=== PATIENT | female | born 1980 | race Two or more races ===

== ENCOUNTER 2019-08-13 09:26 | Emergency (ER) | payer SELFPAY ==
[~2019-08-13] VITALS: Ht 165.1 cm; Wt 65.8 kg
[2019-08-13 10:14] VITALS: BP 112/68
--- NOTE | 2019-08-13 10:39 | PHYS DOC ---
Past Medical History Past Medical History: No Pertinent History Past Surgical History: No Surgical History Alcohol Use: None Drug Use: None Adult General Chief Complaint Chief Complaint: FLU SYMPTOM HPI HPI Patient is a 38 year old female patient with no significant medical history who presents to the ED today complaining of body aches chills and a cough that began yesterday. Patient denies any fever. She reports she was seen by her PCP and was started on albuterol inhaler for asthma. She states she did not fill the prescription. She took ibuprofen yesterday as well as hydrocodone from her mother and woke up this morning vomiting. Denies any abdominal pain. Review of Systems Review of Systems Constitutional: Reports body aches, chills, denies fever Eyes: Denies change in visual acuity, redness, or eye pain [] HENT: Denies nasal congestion or sore throat [] Respiratory: Reports cough, denies shortness of breath [] Cardiovascular: No additional information not addressed in HPI [] GI: Reports vomiting after taking hydrocodone. Denies abdominal pain, bloody stools or diarrhea [] : Denies dysuria or hematuria [] Musculoskeletal: Denies back pain or joint pain [] Integument: Denies rash or skin lesions [] Neurologic: Denies headache, focal weakness or sensory changes [] All other systems were reviewed and found to be within normal limits, except as documented in this note. Allergies Allergies Allergies Coded Allergies Type Severity Reaction Last Updated Verified No Known Drug Allergies 05/06/15 No Physical Exam Physical Exam Constitutional: Well developed, well nourished, no acute distress, non-toxic appearance. [] HENT: Normocephalic, atraumatic, bilateral external ears normal, oropharynx moist, no oral exudates, nose normal. [] Eyes: PERRLA, EOMI, conjunctiva normal, no discharge. [] Neck: Normal range of motion, no tenderness, supple, no stridor. [] Cardiovascular:Heart rate regular rhythm, no murmur [] Lungs & Thorax: Bilateral breath sounds clear to auscultation [] Abdomen: Bowel sounds normal, soft, no tenderness, no masses, no pulsatile masses. [] Skin: Warm, dry, no erythema, no rash. [] Back: No tenderness, no CVA tenderness. [] Extremities: No tenderness, no cyanosis, no clubbing, ROM intact, no edema. [] Neurologic: Alert and oriented X 3, normal motor function, normal sensory function, no focal deficits noted. [] Psychologic: Affect normal, judgement normal, mood normal. [] Current Patient Data Vital Signs Vital Signs Date Time Temp Pulse Resp B/P (MAP) Pulse Ox O2 Delivery O2 Flow Rate FiO2 08/13/19 10:14 98.4 88 16 112/68 (83) 95 Room Air 98.4 Lab Values Laboratory Tests Test 08/13/19 10:12 Influenza Type A Antigen Positive (NEGATIVE) Influenza Type B Antigen Negative (NEGATIVE) EKG EKG [] Radiology/Procedures Radiology/Procedures []PROCEDURE: CHEST PA & LATERAL CHEST PA LATERAL INDICATION: Cough. COMPARISON STUDY: None. FINDINGS: Normal lung volume. Mild ill-defined right mid lung opacities and additional right mid lung linear opacity. The tracheobronchial tree and hilar structures are normal. No pneumothorax. The cardiomediastinal silhouette is normal. The great vessels of the thorax are normal. IMPRESSION: Mild ill-defined right mid lung opacities, possibly an infectious respiratory process. Additional right mid lung linear opacity likely represents trace fluid within the minor fissure and/or subsegmental atelectasis. Electronically signed by: Fawad Loyola MD (08/13/2019 10:39 AM) [facility] DICTATED and SIGNED BY: FAWAD LOYOLA MD DATE: 08/13/19 1039 Course & Med Decision Making Course & Med Decision Making Pertinent Labs and Imaging studies reviewed. (See chart for details) This is a 38-year-old male patient presented to the ED today with complaints of body aches, chills, and a cough that began yesterday. Patient reports vomiting after taking hydrocodone from the mother. Vitals are stable with normal temperature. Positive for influenza A, negative influenza B- d/c with Tamiflu Chest x-ray noted for mild ill-defined lung opacities possible infectious respiratory process. Also noted for additional right mid lung linear opacities likely representing trace fluid within the minor fistulas or subsegmental atelecatsis-I will sent this patient home on doxycycline and have her follow-up with the PCP after the treatment to see if this clears out as infectious process or needs further workup. Patient was provided return precautions. Follow-up with her PCP in 7-10 days. Quintin Disclaimer Quintin Disclaimer This electronic medical record was generated, in whole or in part, using a voice recognition dictation system. Departure Departure Impression: Primary Impression: Influenza A Additional Impressions: Body aches Right middle lobe pneumonia Disposition: 01 HOME, SELF-CARE Condition: STABLE Referrals: NO PCP (PCP) follow up in 1-2 weeks Patient Instructions: Influenza A (H1N1), Pneumonia, Adult Additional Instructions: You were evaluated in the emergency room are a positive for influenza A we put on Tamiflu for this. Your chest x-ray is also concerning for possible infection, we will cover you for pneumonia with doxycycline. Please take Tylenol or Motrin for body aches or fever. Rest, push fluids. Follow-up with your doctor in 7-10 days. Scripts Doxycycline Hyclate (DOXYCYCLINE HYCLATE) 100 Mg Tablet 1 TAB PO BID, #14 TAB Prov: NORMA JAMES APRN 08/13/19 Ondansetron (ONDANSETRON ODT) 4 Mg Tab.rapdis 1 TAB PO PRN Q6-8HRS, #16 TAB Prov: NORMA JAMES APRN 08/13/19 Oseltamivir Phosphate (TAMIFLU) 75 Mg Capsule 1 CAP PO BID, #10 CAP Prov: NORMA JAMES APRN 08/13/19 Problem Qualifiers Additional Impressions: Right middle lobe pneumonia Pneumonia type: due to unspecified organism Qualified Codes: J18.9 - Pneumonia, unspecified organism NORMA JAMES APRN Aug 13, 2019 10:39
--- NOTE | 2019-08-13 10:42 | RAD ---
CHEST PA LATERAL INDICATION: Cough. COMPARISON STUDY: None. FINDINGS: Normal lung volume. Mild ill-defined right mid lung opacities and additional right mid lung linear opacity. The tracheobronchial tree and hilar structures are normal. No pneumothorax. The cardiomediastinal silhouette is normal. The great vessels of the thorax are normal. IMPRESSION: Mild ill-defined right mid lung opacities, possibly an infectious respiratory process. Additional right mid lung linear opacity likely represents trace fluid within the minor fissure and/or subsegmental atelectasis. Electronically signed by: Daniel Go MD (08/13/2019 10:39 AM) [facility]
[2019-08-13 10:45] LABS: INFLUENZA A PATIENT POSITIVE (NEGATIVE); INFLUENZA B PATIENT NEGATIVE (NEGATIVE)
[2019-08-13] MEDS ORDERED: OSEL75CA PO (11:00)
[2019-08-13] MEDS ORDERED: DOXY100T PO (11:00)
[2019-08-13] MEDS ORDERED: ONDA4TAB12 PO (11:00)
== END 2019-08-13 11:17 | disposition home or self-care (01) ==
LOC: ER 09:26
DX: J10.08 Influenza due to other identified influenza virus with other specified pneumonia (principal)
CPT/HCPCS: 71046; 87804; 99285